=== PATIENT | female | born 1980 | race Caucasian/White ===

== ENCOUNTER 2021-12-17 06:17 | Emergency (ER) | payer SELFPAY ==
[~2021-12-17] VITALS: Ht 149.9 cm; Wt 86.2 kg
[2021-12-17 06:24] VITALS: BP 145/84
[2021-12-17] MEDS ORDERED: NACL 0.9% 1,000 ML IV SCH (06:35)
[2021-12-17] MEDS ORDERED: ONDANSETRON 4 MG/2 ML VIAL IVP ONE (06:35)
[2021-12-17] MEDS ORDERED: ONDANSETRON 4 MG/2 ML VIAL ONE (06:40)
[2021-12-17] MEDS ORDERED: MORPHINE SULFATE 4 MG/ML SYR IVP ONE (07:00)
[2021-12-17 07:09] LABS: BASOPHILS % (AUTO) 0.2 % (0.0-2.0); EOSINOPHILS # (AUTO) 0.2 K/uL (0-0.4); EOSINOPHILS % (AUTO) 1.3 % (0.0-4.0); HEMATOCRIT 33.1 % (36-48); HEMOGLOBIN 10.1 g/dL (12.0-16.0); LYMPHOCYTES # (AUTO) 1.3 K/uL (2.5-16.5); LYMPHOCYTES % (AUTO) 7.5 % (20.5-51.1); MEAN CORPUSCULAR HEMOGLOBIN 20 pg (27-31); MEAN CORPUSCULAR HGB CONC 30 g/dL (33-37); MEAN CORPUSCULAR VOLUME 65.5 fL (80-94); MONOCYTES % (AUTO) 5.6 % (1.7-9.3); NEUTROPHILS # (AUTO) 14.4 K/uL (1.8-7.7); NEUTROPHILS % (AUTO) 85.4 % (42.2-75.2); PLATELET COUNT (AUTO) 510 K/uL (140-450); RED BLOOD CELL COUNT(AUTO) 5.06 MIL/uL (4.20-5.40); WHITE BLOOD COUNT (AUTO) 16.8 K/uL (4.8-10.8)
[2021-12-17 07:12] LABS: APPEARANCE,URINE SL CLOUDY (CLEAR); BILIRUBIN,URINE NEGATIVE (NEGATIVE); BLOOD, URINE 2+ (NEGATIVE); COLOR,URINE YELLOW (YELLOW); LEUKOCYTE ESTERASE ,URINE NEGATIVE (NEGATIVE); NITRITE, URINE NEGATIVE (NEGATIVE); UGLUCOSE NEGATIVE (NEGATIVE)
[2021-12-17 07:25] LABS: ALBUMIN 3.2 g/dL (3.4-5.0); ANION GAP 14.2 (8-16); CARBON DIOXIDE 24.8 mmol/L (21-32); CREATININE 0.7 mg/dL (0.6-1.3); TOTAL BILIRUBIN 0.2 mg/dL (0.0-1.0)
[2021-12-17 07:28] LABS: RBC,URINE 11-20 (MOD) /HPF (0-5); WBC,URINE 0-5 /HPF (0-5)
[2021-12-17 07:29] LABS: CALCIUM OXALATE CRYSTALS,UR 0-10 /HPF (None Seen); OTHER CASTS, URINE None Seen /LPF (None Seen)
[2021-12-17] MEDS ORDERED: KETOROLAC 30 MG/ML VIAL IVP ONE (08:35)
[2021-12-17] MEDS ORDERED: cefTRIAXone 1,000 MG VIAL ONE (08:45)
[2021-12-17] MEDS ORDERED: TRAM50TA1 PO (10:09)
[2021-12-17] MEDS ORDERED: TAMS0.4C96 PO (10:09)
[2021-12-17] MEDS ORDERED: IBUP-2213 PO (10:09)
[2021-12-17] MEDS ORDERED: CEPH-588 PO (10:09)
[2021-12-17 10:46] VITALS: BP 132/72
== END 2021-12-17 10:46 | disposition home or self-care (01) ==
LOC: MED 06:17
DX: N12 Tubulo-interstitial nephritis, not specified as acute or chronic (principal); N20.0 Calculus of kidney; N83.209 Unspecified ovarian cyst, unspecified side; K80.20 Calculus of gallbladder without cholecystitis without obstruction; Z79.899 Other long term (current) drug therapy
CPT/HCPCS: 36415; 74176; 76705; 80053; 81001; 81025; 82150; 83605; 83690; 85025; 87040; 87086; 96361; 96365; 96375; 99285; J0696; J1885; J2270; J2405; J7030; Q0092

== ENCOUNTER 2024-01-29 01:15 | Emergency (ER) | payer SELFPAY ==
[~2024-01-29] VITALS: Ht 157.5 cm; Wt 103.1 kg
[~2024-01-29 01:15] MED LIST: CEPH-588 PO; IBUP-2213 PO; TAMS0.4C96 PO; TRAM-748 PO
[2024-01-29 02:03] VITALS: BP 131/71; PULSE 99; RESP 18; TEMP 98; O2SAT 95
[2024-01-29 02:27] VITALS: BP 131/71; PULSE 99; RESP 18; TEMP 98; O2SAT 95
== END 2024-01-29 02:27 | disposition home or self-care (01) ==
LOC: MED 01:15
DX: S16.1XXA Strain of muscle, fascia and tendon at neck level, initial encounter (principal); Z79.899 Other long term (current) drug therapy; V89.2XXA Person injured in unspecified motor-vehicle accident, traffic, initial encounter; Y93.89 Activity, other specified; Y92.89 Other specified places as the place of occurrence of the external cause; Y99.8 Other external cause status
CPT/HCPCS: 99281